=== PATIENT | female | born 2000 | race Caucasian/White ===

== ENCOUNTER 2022-12-14 08:17 | Emergency (ER) | payer OTHER, SELFPAY ==
--- NOTE | 2022-12-14 08:29 | ED.GENADULT ---
HPI - General Adult General Chief complaint: Ear Stated complaint: Left Ear Irritation Time Seen by Provider: 12/14/22 08:29 Source: patient, RN notes reviewed and old records reviewed Mode of arrival: ambulatory Limitations: no limitations History of Present Illness HPI narrative: 22-year-old female presents to the [facility] with complaints of left ear pain/pressure. Pain with swallowing. No treatment prior to arrival Uses Q-tips in her ears. Related Data Allergies Allergy/AdvReac Type Severity Reaction Status Date / Time No Known Allergies Allergy Unknown Verified 12/14/22 08:31 Review of Systems Review of Systems: All systems reviewed & are unremarkable except as noted in HPI and below Constitutional: Constitutional: Reports as per HPI and Reports fever(s) (Subjective) Eyes: Eyes: Reports no additional eye complaints ENT: Reports as per HPI, Reports otalgia and Reports sore throat Cardiovascular: Cardiovascular: Reports no additional cardiovascular complaints, Denies chest pain and Denies dyspnea Respiratory: Respiratory: Reports no additional respiratory complaints, Denies chest congestion, Denies cough and Denies dyspnea Gastrointestinal: Gastrointestinal: Reports no additional gastrointestinal complaints, Denies abdominal pain, Denies nausea and Denies vomiting Musculoskeletal: Musculoskeletal: Reports no additional musculoskeletal complaints Integumentary/Breasts: Skin/Breast: Reports system reviewed and no additional complaints, except as docu Neurologic: Reports system reviewed and no additional complaints, except as documented Psychiatric: Psychiatric: Reports no additional psychiatric complaints Allergic/Immunologic: Allergic/Immunologic: Reports no additional allergic/immunologic complaints PMFSH Comments At the time of my signature, I reviewed and agree with the nursing past medical, surgical, social, and family history. There is no relevant family history pertinent to the patient complaint. Exam Const: General: cooperative, healthy appearing, comfortable, no acute distress, well developed, alert and well nourished Nutritional Appearance: well nourished Orientation/consciousness: patient oriented x3 Limitations: no limitations HENMT: Head: normal to inspection Ears: hearing grossly normal bilaterally, external ears normal, Abnormal EAC present erythema on the left, edema on the left and EAC tenderness on the left and TM abnormal with fluid behind the TM bilateral; not erythematous Face/Nose/Sinus: Normal external nose present, Normal nares present, Normal nasal mucous membranes and turbinates present, normal facial exam and face symmetric Face and sinus: normal facial exam and face symmetric Mouth: Yes Normal oral and palatal mucosa present, Yes lip normal and Yes moist mucous membranes Throat: posterior oropharynx normal, uvula midline, abnormal tonsil bilateral hypertrophy 2+; no erythema and no exudates and postnasal drainage Eyes: General: appearance normal, both eyes and all related structures Alignment and Position: alignment normal Periorbital: periorbital findings normal Pupils: Equal, round and reactive pupils present EOM: EOMs intact bilaterally Neck: Neck: normal visual inspection, full ROM, no lymphadenopathy and no meningeal signs Chest: Chest palpation & inspection: normal inspection of the chest Resp: Effort & Inspection: normal respiratory effort and able to speak in complete sentences Auscultation: clear to auscultation bilaterally, no crackles, no rales, no rhonchi and no wheezes Cardio: Rate: regular rate Rhythm: regular rhythm Back/Spine/Pelvis: Cervical Spine: cervical ROM normal Skin: General skin exam: normal color and no rashes or lesions noted Lesions: no lesions Rashes: no rashes Wounds: no wounds Neuro: General: patient oriented x3, gait normal, tone normal, moves all extremities and no meningeal signs Cranial nerves: Yes Equal, round and reactive pupils present
[2022-12-14 08:30] VITALS: BP 120/80; PULSE 96; RESP 16; TEMP 36.8; O2SAT 98
== END 2022-12-14 08:54 | disposition home or self-care (01) ==
PROVIDERS: Emergency Provider Nurse Practitioner
DX: H65.03 Acute serous otitis media, bilateral (principal); H61.892 Other specified disorders of left external ear
CPT/HCPCS: 87081; 87880; 99213; G0463

== ENCOUNTER 2023-02-27 12:19 | Emergency (ER) | payer OTHER, SELFPAY ==
[2023-02-27 12:42] VITALS: BP 119/68; PULSE 102; RESP 16; TEMP 36.8; O2SAT 100
--- NOTE | 2023-02-27 13:41 | ED.EYEPROB ---
HPI - Eye Problem General Chief complaint: Eye Problems Stated complaint: Left Eye Irritation Time Seen by Provider: 02/27/23 13:41 Source: patient and RN notes reviewed Mode of arrival: ambulatory Limitations: no limitations History of Present Illness HPI Narrative: 22-year-old female presents with concern for left eye redness, irritation, discharge. Reports she woke up with her eye matted shut this morning. She denies any eye injury or trauma. She denies wearing contact lenses. Reports she got a new mascara that she wore last night that she washed off before bed. chief complaint: eye redness Related Data Allergies Allergy/AdvReac Type Severity Reaction Status Date / Time No Known Allergies Allergy Unknown Verified 02/27/23 12:45 Review of Systems Review of Systems: CONSTITUTIONAL: Denies malaise, chills, sweats, or fever. EYES: Denies visual changes. Reports left eye redness, irritation, discharge. ENT: Denies rhinorrhea, congestion, sinus pain, otalgia or sore throat. SKIN: Denies rash or itching. NEUROLOGIC: Denies numbness, weakness, or headache. PSYCHIATRIC: Denies anxiety or depression. All systems reviewed & are unremarkable except as noted in HPI and below PMFSH Comments At time of signature, agree with nursing past medical, surgical, social and family history. There is no relevant family history pertinent to the presenting complaint Exam Narrative: GENERAL: Well-appearing, well-nourished, and in no acute distress. HEAD: Normocephalic, atraumatic. EYES: PERRLA, right sclera clear, and EOMI. No nystagmus. Left sclera and conjunctivae injected with crusty drainage noted. Upper and lower eyelid unremarkable, no periorbital edema noted ENT: Nares clear, turbinates pink, no rhinorrhea or epistaxis. Mucous membranes moist. TM pearly ahn with sharp light reflex bilaterally; no tragal tenderness. NECK: Supple. CHEST: No respiratory distress. Speaks in full sentences. HEART: Regular rate and rhythm. SKIN: Warm, dry, no visible rash. NEURO: Alert and oriented x3. PSYCH: Normal mood and affect Course Course Emergency Course: Patient is aware of diagnosis, understands and agrees to treatment plan. Anticipatory guidance given. Patient agrees to follow-up as directed and is aware of reasons to seek care at the emergency department. Portions of this record may have been created with voice recognition software Level of Care: Express Care Visit Vital Signs Vital signs: Vital Signs Temperature 98.2 F 02/27/23 12:42 Pulse Rate 102 H 02/27/23 12:42 Respiratory Rate 16 02/27/23 12:42 Blood Pressure 119/68 02/27/23 12:42 Pulse Oximetry 100 02/27/23 12:42 Oxygen Delivery Room Air 02/27/23 12:42 Temperature 98.2 F 02/27/23 12:42 Pulse Rate 102 H 02/27/23 12:42 Respiratory Rate 16 02/27/23 12:42 Blood Pressure 119/68 02/27/23 12:42 Pulse Oximetry 100 02/27/23 12:42 Oxygen Delivery Room Air 02/27/23 12:42 Reviewed. MDM - Eye Problem MDM Narrative Medical decision making narrative: Consideration of the following conditions may be warranted for the presenting problem, they are not final diagnoses: Bacterial conjunctivitis, allergic conjunctivitis, viral conjunctivitis, foreign body, blepharitis, chalazion, hordeolum, corneal abrasion, preseptal cellulitis, orbital cellulitis. No evidence of proptosis, ophthalmoplegia, vision loss, pain with eye movement. Exam findings show no acute concerns or changes; patient is non-toxic appearing and is in no distress. Patient is appropriate for outpatient treatment and follow-up. Critical Care Time Critical Care Time Critical Care Time: No Discharge Plan Discharge Clinical Impression: Conjunctivitis Patient Disposition: Home, Self-Care Condition: Stable Instructions: Conjunctivitis (ED) Additional Instructions: Do not touch or rub your eye. Use a warm or cool washcloth on your eye for comfort Use eye
--- NOTE | 2023-02-27 14:06 | PC.NURSE ---
Eye kit was not used
== END 2023-02-27 14:06 | disposition home or self-care (01) ==
PROVIDERS: Emergency Provider Nurse Practitioner
DX: H10.9 Unspecified conjunctivitis (principal)
CPT/HCPCS: 99213; A9270; G0463

== ENCOUNTER 2023-04-01 08:11 | Emergency (ER) | payer OTHER, SELFPAY ==
[2023-04-01 08:21] VITALS: BP 124/89; PULSE 102; RESP 16; TEMP 36.6; O2SAT 98
--- NOTE | 2023-04-01 08:33 | ED.EYEPROB ---
HPI - Eye Problem General Chief complaint: Eye Problems Stated complaint: Eyes Irritation Time Seen by Provider: 04/01/23 08:26 Source: patient and RN notes reviewed Mode of arrival: ambulatory Limitations: no limitations History of Present Illness HPI Narrative: Patient presents today complaining of bilateral eye redness that was noted this morning. Denies drainage, irritation, foreign body sensation, vision changes. States she did cry last night and is wondering if this is contributing to her symptoms. She has had cough and congestion x1 week. Related Data Home Medications Medication Instructions Recorded Confirmed No Home Medications 04/01/23 04/01/23 Allergies Allergy/AdvReac Type Severity Reaction Status Date / Time No Known Allergies Allergy Unknown Verified 04/01/23 08:27 Review of Systems Review of Systems: CONSTITUTIONAL: Denies body aches, fever, chills, or sweats. EYES: Denies visual changes, discharge.+ bilateral eye redness ENT: Denies rhinorrhea, congestion, sore throat, or otalgia. CARDIOVASCULAR: Denies chest pain, palpitations, or edema. RESPIRATORY: Denies cough or dyspnea. GASTROINTESTINAL: Denies abdominal pain, nausea, vomiting, or diarrhea. GENITOURINARY: Denies dysuria or hematuria. SKIN: Denies rash, itching, or wounds. MUSCULOSKELETAL: Denies back pain, joint pain, or myalgia. NEUROLOGIC: Denies headache, numbness, tingling, or weakness. PSYCH: Denies depression or anxiety. PMFSH Comments At time of signature, I have reviewed and agree with nursing past medical, surgical, social and family history unless otherwise noted. Please see nursing chart for further information. There is no relevant family history pertinent to the presenting complaint Exam Narrative: GENERAL: Well-appearing, well-nourished, and in no acute distress. HEAD: Normocephalic, atraumatic. EYES: EOMI. PERRL. Bilateral injected conjunctiva. No drainage or swelling. Lids and lashes normal. ENT: Mucous membranes pink and moist. Nares congestive. No rhinorrhea. NECK: Normal AROM. Supple. No lymphadenopathy. CHEST: No respiratory distress. Clear to auscultation. HEART: Regular rate and rhythm. No murmur appreciated. EXTREMITIES: Normal range of motion. No edema. SKIN: Warm, dry, no rash. Capillary refill normal. Normal skin turgor. NEURO: No focal deficits. Alert and oriented x3. Gait steady. PSYCH: Normal affect. No signs of depression or anxiety. Course Course Level of Care: Express Care Visit Vital Signs Vital signs: Vital Signs Temperature 97.9 F 04/01/23 08:21 Pulse Rate 102 H 04/01/23 08:21 Respiratory Rate 16 04/01/23 08:21 Blood Pressure 124/89 04/01/23 08:21 Pulse Oximetry 98 04/01/23 08:21 Oxygen Delivery Room Air 04/01/23 08:21 Temperature 97.9 F 04/01/23 08:21 Pulse Rate 102 H 04/01/23 08:21 Respiratory Rate 16 04/01/23 08:21 Blood Pressure 124/89 04/01/23 08:21 Pulse Oximetry 98 04/01/23 08:21 Oxygen Delivery Room Air 04/01/23 08:21 Reviewed MDM - Eye Problem MDM Narrative Medical decision making narrative: Patient's eye symptoms are likely due to viral conjunctivitis. Discussed [id number] treatment. Anticipatory guidance given. Differential Diagnosis Differential diagnosis: Likely corneal abrasion and conjunctivitis Critical Care Time Critical Care Time Critical Care Time: No Discharge Plan Discharge Clinical Impression: Acute viral conjunctivitis of both eyes Patient Disposition: Home, Self-Care Condition: Stable Instructions: Conjunctivitis (ED) Additional Instructions: Your eye symptoms are likely due to a viral illness and should resolve on its own. You may use [id number] antihistamine drops such as Zaditor if you have any itching or irritation. If you start having any pus drainage from her eyes, please be re-evaluated. Your blood pressure was elevated above 120/80 today [facility]
== END 2023-04-01 08:48 | disposition home or self-care (01) ==
PROVIDERS: Emergency Provider Nurse Practitioner
DX: H10.33 Unspecified acute conjunctivitis, bilateral (principal)
CPT/HCPCS: 99212; G0463

== ENCOUNTER 2024-04-01 15:21 | Emergency (ER) | payer OTHER, SELFPAY ==
--- NOTE | ~2024-04-01 | XR_ITS ---
EXAMINATION: XR ankle RT min 3V DATE: 04/01/2024 16:53 INDICATION: Fall. TECHNIQUE: 4 views of right ankle were obtained. COMPARISON: None. FINDINGS: There is an oblique fracture of distal fibula with medial aspect of the fracture line at th e level of the tibial plafond. The distal fracture fragment demonstrates 1 mm posterolateral displace ment. Joint spaces are normal. There is ankle soft tissue swelling. IMPRESSION: 1. Oblique fracture of distal fibula. Reviewed, dictated and finalized at location A. PAINTER HELPER
--- NOTE | ~2024-04-01 | XR_ITS ---
EXAMINATION: XR tibia fibula RT 2V DATE: 04/01/2024 16:53 INDICATION: Fall. TECHNIQUE: 2 views of right tibia and fibula were obtained. COMPARISON: None. FINDINGS: There is an oblique fracture of distal fibula with medial aspect of the fracture line at th e level of the tibial plafond. The distal fracture fragment demonstrates 1 mm posterolateral displace ment. Joint spaces are normal. IMPRESSION: 1. Oblique fracture of distal fibula. Reviewed, dictated and finalized at location A. [facility]
--- OUTSIDE RECORDS SUMMARY | 2024-04-01 16:08 | XMS_ITS | Clinical Summary ---
Author Organization [facility] [employer] Address [address] [place] [address] Care Team Providers Care Pre Parole Counseling Aide Name Role Phone Tomy Mulligan MD Primary Care Provider [phone] Source Comments [facility],non-owned Affiliates and Associated Physician Practices is amultiple site organization consisting of ambulatory clinics and hospital sitesin [place], [place] and [place]. This disclosure is being madepursuant to the Care Everywhere program and may not contain all information available regarding this patient. Last updated 17.[facility] [employer] Allergies No known active allergies Medications Be aware that medications may not be up to date on this document. Always verify current medications with the patient. No known medications Active Problems Problem Noted Date Diagnosed Date Ganglion of left wrist 07/28/2020 Syncope and collapse Immunizations Name Administration Dates Next Due INFLUENZA VACCINE, QUADR. (F LUZONE; FLULAVAL; FLUARIX; AFLURIA QUADRIVALENT; 6MO+), 0.5 ML (IIV4) 12/24/2017 Social History Tobacco Use Types Packs/Day Years Used Date Smoking Tobacco: Never Smokeless Tobacco: Never Sex and Gender Information Value Date Recorded Sex Assigned at Not on file Gender Identity Not on file Sexual Orientation Not on file Last Filed Vital Signs Vital Sign Reading Time Taken Comments Blood Pressure 110/66 11/01/2020 4:19 PM CDT Pulse 101 11/01/2020 4:19 PM CDT Temperature 37.2 ??C (99 ??F) 11/01/2020 4:19 PM CDT Respiratory Rate 17 11/01/2020 4:19 PM CDT Oxygen Saturation - - Inhaled Oxygen Concentration - - Weight 88.9 kg (196 lb) 11/01/2020 4:19 PM CDT Height 172.7 cm (5' 8 ) 11/01/2020 4:19 PM CDT Body Mass Index 29.8 11/01/2020 4:19 PM CDT Plan of Treatment Health Maintenance Due Date Last Done Comments PAP SMEAR 2000 HIV SCREENING 08/01/2015 HPV VACCINE (1 - 3-dose series) 08/01/2015 CHLAMYDIA/GONORRHEA SCREENING 2016 MENINGOCOCCAL (Group B) VACCINE (1 of 2 - Standard) 2016 HEPATITIS C SCREENING 07/27/2018 DTAP/TDAP/TD VACCINES (1 - Tdap) 08/01/2019 HEPATITIS B VACCINE (1 of 3 - 19+ 3-dose series) 08/01/2019 COVID-19 VACCINE (3 - 2023-2 5 season) 2023 06/26/2020, 06/04/2020 INFLUENZA VACCINE (#1) 2023 12/24/2017 DEPRESSION SCREENING 03/04/2024 ZOSTER VACCINE (1 of 2) 2050 HIB VACCINE Aged Out No longer eligi ble based on patient's age to complete this topic MENINGOCOCCAL VACCINE Aged Out No daryl hazel eligible based on patient's age to complete this topic PNEUMOCOCCAL VACCINE Aged Out No long er eligible based on patient's age to complete this topic Care Teams Pre Parole Counseling Aide Relationship Specialty Start Date End Date Tomy Mulligan MD [address] [place] [address] [place] [phone] PCP - General 06/07/11
--- OUTSIDE RECORDS SUMMARY | 2024-04-01 16:08 | XMS_ITS | Referral Summary ---
Author Organization [facility] Address [address] [place] [address] Care Team Providers Care Marine Radio Installer And Servicer Name Role Phone Tomy Mulligan MD Primary Care Provider [phone]- [phone] Source Comments [facility],non-owned Affiliates and Associated Physician Practices is amultiple site organization consisting of ambulatory clinics and hospital sitesin [place], [place], [place] and [place]. This disclosure is being madepursuant to the Care Everywhere program and may not contain all information available regarding this patient. Last updated 17.[facility] [employer] Allergies No known active allergies Medications Be [...] 11/01/2020 4:19 PM CDT Plan of Treatment Not on file Administered Medications Care Teams Marine Radio Installer And Servicer Relationship Specialty Start Date End Date Tomy Mulligan MD [address] [place] [id number] PCP - General 06/07/11
--- OUTSIDE RECORDS SUMMARY | 2024-04-01 16:08 | XMS_ITS | Patient Health Summary ---
Author Organization [facility] Address [address] [place] [address] Care Team Providers Care It Support Engineer Name Role Phone Tomy Mulligan MD Primary Care Provider [phone]- [phone] Note from [facility],non-owned Affiliates and Associated Physician Practices is amultiple site organization consisting of ambulatory clinics and hospital sitesin [place], [place], [place] and [place]. This disclosure is being madepursuant to the Care Everywhere program and may not contain all information available regarding this patient. Last updated 17.[facility] Allergies No known active allergies Medications Be aware that medications may not be up to date on this document. Always verify current medications with the patient. No known medications Active Problems Problem Noted Date Diagnosed Date Ganglion of left wrist 07/28/2020 Syncope and collapse Immunizations * INFLUENZA VACCINE, QUADR. (FLUZONE; FLULAVAL; FLUARIX; AFLURIA QUADRIVALENT; 6MO+), 0.5 ML (IIV4)(Given 12/24/2017) Social History Tobacco Use Types Packs/Day Years [...] Mass Index 29.8 11/01/2020 4:19 PM CDT Procedures * SKIN TEST PPD - POINT OF CARE(Performed 11/01/2020) Performed for Encounter for screening for respiratory tuberculosis * XR TRUNK FOREIGN BODY CHILD(Performed 09/24/2011) Performed for Foreign body * XR SCOLIOSIS 1VW(Performed 06/07/2011) Performed for Scoliosis (and kyphoscoliosis), idiopathic Results * SKIN TEST PPD - POINT OF CARE (11/01/2020 4:31 PM CDT) PPD negative. [facility] [place] Comment:no induration Other MISCELLANEOUS SAMPLE S / Unknown 11/01/2020 4:31 PM CDT Emma Dwyer APRN-LAPIDARY APPRENTICE LAB - POINT OF CARE ORDERABLES Performing Organization Address City/State/[facility] Co de Phone Number [facility] [address] [phone] * XR TRUNK FOREIGN BODY CHILD (09/24/2011 8:29 PM CDT) Anatomical Region Laterality Modality Abdomen Radiographic Julissa ging 09/25/2011 7:41 AM CDT Impressions 09/25/2011 9:46 AM CDT 1. ??No radiopaque foreign body is identified. 2. ??Unremarkable appearance of the chest. 3. ??Nonobstructive bowel gas pattern. D: Leeanna Leslie MD Narrative 09/25/2011 9:46 AM CDT Trunk, foreign body 09/24/2011 History: Swallowed a bottle cap, pain below rib area AP radiographs of the trunk were obtained to evaluate for foreign body. Comparison was made with scoliosis radiographs performed June 07, 2011. No radiopaque foreign body is identified. The airway appears patent. Central pulmonary vasculature and cardiothymic silhouette are unremarkable. Lung schultz are appropriate in size appear clear. The stomach is distended and filled with food contents. The bowel gas pattern is nonobstructive, and fecal material is seen scattered throughout. No acute osseous abnormalities are present. Procedure Note Reva Ramos MD - 09/25/2011 Trunk, foreign body 09/24/2011 History: Swallowed a bottle cap, pain below rib area AP radiographs of the trunk were obtained to evaluate for foreign body. Comparison was made with scoliosis radiographs performed June 07, 2011. No radiopaque foreign body is identified. The airway appears patent. Central pulmonary vasculature and cardiothymic silhouette are unremarkable. Lung schultz are appropriate in size appear clear. The stomach is distended and filled with food contents. The bowel gas pattern is nonobstructive, and fecal material is seen scattered throughout. No acute osseous abnormalities are present. IMPRESSION 1. No radiopaque foreign body is identified. 2. Unremarkable appearance of the chest. 3. Nonobstructive bowel gas pattern. D: Leeanna Leslie MD Simon Aceves MD DIAGNOSTIC IMAGING ORDERABLES * XR SCOLIOSIS ERECT (06/07/2011 3:22 PM CDT) Anatomical Region Laterality Modality Spine Radiographic Julissa ging 06/07/2011 4:23 PM CDT Impressions 06/07/2011 4:23 PM CDT Minimal lumbar curvatures as above. Slight pelvic tilt. Narrative 06/07/2011 4:23 PM CDT Scoliosis series performed June 07, 2011. History: Scoliosis. Standing frontal and lateral views of the spine were obtained. No prior films are available for comparison. There is a minimal lumbar dextroscoliosis with a Schwartz angle of 6 degrees as measured from L1 to L5. There is mild accentuation of the lumbar lordosis on the lateral film. The vertebral bodies appear intact and there is no obvious paraspinal mass. The left iliac crest is slightly higher than the right suggesting possible leg length discrepancy. Procedure Note Moon Mercado MD - 06/07/2011 Scoliosis series performed June 07, 2011. History: Scoliosis. Standing frontal and lateral views of the spine were obtained. No prior films are available for comparison. There is a minimal lumbar dextroscoliosis with a Schwartz angle of 6 degrees as measured from L1 to L5. There is mild accentuation of the lumbar lordosis on the lateral film. The vertebral bodies appear intact and there is no obvious paraspinal mass. The left iliac crest is slightly higher than the right suggesting possible leg length discrepancy. IMPRESSION Minimal lumbar curvatures as above. Slight pelvic tilt. Tomy Mulligan MD DIAGNOSTIC IMAGING ORDERABLES Care Teams It Support Engineer Relationship Specialty Start Date End Date Tomy Mulligan MD [address] [facility] [facility] [address] [place] [address] [place] [id number] PCP - General 06/07/11
[2024-04-01 16:19] VITALS: BP 117/90; PULSE 99; RESP 16; TEMP 36.6; O2SAT 98
--- NOTE | 2024-04-01 16:21 | ED_ITS ---
HPI - Extremity Injury (Lower) General Chief Complaint: Extremity Injury, Lower Stated Complaint: right ankle injury Time Seen by Provider: 04/01/24 17:17 Focused HPI: 23-year-old female presents emergency department for right ankle pain and swelling. States she was trying to get out of the car when her left foot got stuck in a lunch box and she stepped out of a car the right foot and rolled her ankle. She is reporting pain and swelling to the lateral malleolus. No other injuries acquired. GENERAL: Well-appearing, well-nourished, and in no acute distress. HEAD: Normocephalic, atraumatic. CHEST: Clear to auscultation. ?No respiratory distress. EXT: RLE: Diffuse tenderness and edema to the right lateral malleolus with no obvious deformity, limited range of motion of ankle secondary to pain. Patient able to wiggle toes. DP pulse 2 +. Sensation intact. Negative Mann's test. No tenderness remainder of extremity. HEART: Regular rate and rhythm.? NEURO: ?Alert and oriented x3. Patient screened in triage and initial orders placed.? ?Additional care and disposition to be based upon?diagnostic testing and treatment. History of Present Illness HPI Narrative: Agree with the above note. Related Data Allergies Allergy/AdvReac Type Severity Reaction Status Date / Time No Known Allergies Allergy Unknown Verified 04/01/23 08:27 Review of Systems Review of Systems: All systems reviewed & are unremarkable except as noted in HPI and below Exam Narrative: GENERAL: Well-appearing, well-nourished, and in no acute distress. HEAD: Normocephalic, atraumatic. EYES: EOMI. ENT: Nares clear, no rhinorrhea or epistaxis. Mucous membranes moist. NECK: Supple. CHEST: Clear to auscultation. No respiratory distress. HEART: Regular rate and rhythm. No murmur heard. Normal peripheral pulses. EXTREMITIES: RLE: Swelling, edema tenderness to the right lateral malleolus. Limited range of motion of ankle secondary to pain. Able to wiggle toes. No tenderness rib foot, proximal fibula or tibia, knee remainder of extremity. DP pulse 2 +. Sensation intact. Compartments soft. SKIN: Warm, dry, no rash. NEURO: No focal deficits. Alert and oriented x3 Course Vital Signs Vital signs: Vital Signs Temperature 97.9 F 04/01/24 16:19 Pulse Rate 99 04/01/24 16:19 Respiratory Rate 16 04/01/24 16:19 Blood Pressure 117/90 04/01/24 16:19 Pulse Oximetry 98 04/01/24 16:19 Temperature 97.9 F 04/01/24 16:19 Pulse Rate 99 04/01/24 16:19 Respiratory Rate 16 04/01/24 16:19 Blood Pressure 117/90 04/01/24 16:19 Pulse Oximetry 98 04/01/24 16:19 MDM - Extremity Injury (Lower) MDM Narrative Medical decision making narrative: 23-year-old female presents emergency department for right ankle injury that occurred prior to arrival. See HPI for further history. Triage vitals are stable. Exam significant for the above. She is neurovascularly intact. Compartments are soft. X-ray reveals an oblique fracture of the distal fibula. Patient updated on results. She was placed in a posterior OCL splint and provided crutches and [place] for pain. She is given follow-up with Orthopedics. Return precautions discussed. She is agreeable with the plan verbalized understanding. Discharged in stable condition. Discharge Plan Discharge Clinical Impression: Closed fibular fracture Qualifiers: Encounter type: initial encounter Fibula location: distal Fracture morphology: unspecified fracture morphology Laterality: right Qualified Code(s): S82.831A - Other fracture of upper and lower end of right fibula, initial encounter for closed fracture Patient Disposition: Home, Self-Care Condition: Stable Instructions: Antibiotic Form, Ankle Fracture (DC) Additional Instructions: You were evaluated in the emergency department for ankle pain. Your x-ray shows an oblique fibular fracture. Please follow-up with the orthopedic surgeon. Rest, ice, elevate and keep your ankle compress. Return to the emergency department if he develops significantly worsening pain, numbness in your foot, or other concerning symptoms. Patient Language: Canadian Prescriptions: New hydrocodone-acetaminophen 5-325 mg tablet 1 tablet PO Q8H PRN (Reason: pain) Qty: 14 0RF Follow-up/Referrals: Tony Tineo MD [Physician] - UNKNOWN,DOCTOR [Primary Care Provider] -
[2024-04-01] MEDS: HYDROcodone/acetaminophen (*CRX) 5-325 MG TABLET 1 TAB PO (17:35)
--- OUTSIDE RECORDS SUMMARY | 2024-04-01 17:39 | XMS_ITS | Clinical Summary ---
Author Organization [facility] Address [address] [place] [address] Care Team Providers Care Metal Polisher Name Role Phone Tomy Mulligan MD Primary Care Provider [phone]- [phone] Source Comments [facility],non-owned Affiliates and Associated Physician Practices is amultiple site organization consisting of ambulatory clinics and hospital sitesin [place], [place], [place] and [place]. This disclosure is being madepursuant to the Care Everywhere program and may not contain all information available regarding this patient. Last updated 17.[facility] Allergies No known active allergies Medications Be [...] age to complete this topic Care Teams Metal Polisher Relationship Specialty Start Date End Date Tomy Mulligan MD [address] [place] [address] [place] [phone] PCP - General 06/07/11
--- OUTSIDE RECORDS SUMMARY | 2024-04-01 17:39 | XMS_ITS | Patient Health Summary ---
Author Organization [facility] Address [address] [place] [address] Care Team Providers Care Senior Manufacturing Test Engineer Name Role Phone Tomy Mulligan MD Primary Care Provider [phone]- [phone] Note from [facility],non-owned Affiliates and Associated Physician Practices is amultiple site organization consisting of ambulatory clinics and hospital sitesin [place], [place], [place] and [place]. This disclosure is being madepursuant to the Care Everywhere program and may not contain all information available regarding this patient. Last updated 17.[facility] Allergies No known active allergies Medications Be [...] 4:31 PM CDT) PPD negative. [facility] [place] Comment:no induration Other MISCELLANEOUS SAMPLE S / Unknown 11/01/2020 4:31 PM CDT Emma Dwyer APRN-HUMID SYSTEM OPERATOR LAB - POINT OF CARE ORDERABLES Performing Organization Address City/State/[facility] Co de Phone Number [facility] [address] [phone] * XR TRUNK FOREIGN BODY CHILD (09/24/2011 [...] Mulligan MD DIAGNOSTIC IMAGING ORDERABLES Care Teams Senior Manufacturing Test Engineer Relationship Specialty Start Date End Date Tomy Mulligan MD [address] [place] [address] [place] [id number] PCP - General 06/07/11
--- OUTSIDE RECORDS SUMMARY | 2024-04-01 17:39 | XMS_ITS | Referral Summary ---
Author Organization [facility] Address [address] [place] [address] Care Team Providers Care Repair Cameraman Name Role Phone Tomy Mulligan MD Primary Care Provider +1- [phone] Source Comments [facility],non-owned Affiliates and Associated Physician Practices is amultiple site organization consisting of ambulatory clinics and hospital sitesin [place], [place], [place] and [place]. This disclosure is being madepursuant to the Care Everywhere program and may not contain all information available regarding this patient. Last updated 17.[facility] [place] Allergies No known active allergies Medications Be [...] Not on file Administered Medications Care Teams Repair Cameraman Relationship Specialty Start Date End Date Tomy Mulligan MD [address] [place] [id number] PCP - General 06/07/11
--- NOTE | 2024-04-09 14:45 | PC.NURSE ---
LATE ENTRY This note is being entered to document information to the patient's record. The following information was omitted on [04/01/24 ], by Rodolfo Ross RN. Short leg posterior splint applied to right lower leg. PMS intact.
== END 2024-04-01 17:50 | disposition home or self-care (01) ==
PROVIDERS: Emergency Provider Physician Assistant
DX: S82.831A Other fracture of upper and lower end of right fibula, initial encounter for closed fracture (principal); X50.9XXA Other and unspecified overexertion or strenuous movements or postures, initial encounter
CPT/HCPCS: 29505; 29515; 73590; 73610; 99284; A9270